=== PATIENT | male | born 1990 | race African-American/Black ===

== ENCOUNTER → 2017-11-08 | Outpatient (CLI) | payer MEDICAID | LOC: M OUTALCOH 13:53 | DX: Z03.89 Encounter for observation for other suspected diseases and conditions ruled out (principal) ==

== ENCOUNTER 2017-11-27 08:53 | Outpatient (RCR) | payer MEDICAID | END 2017-12-03 | LOC: M OUTALCOH 08:53 | DX: F12.10 Cannabis abuse, uncomplicated (principal) ==

== ENCOUNTER 2017-12-06 10:28 | Outpatient (RCR) | payer MEDICAID | END 2018-01-03 | LOC: M OUTALCOH 12-18 08:30 | DX: F12.10 Cannabis abuse, uncomplicated (principal) ==

== ENCOUNTER 2017-12-11 01:21 | Emergency (ER) | payer MEDICAID | END 2017-12-11 02:18 | disposition home or self-care (01) | LOC: M ED 01:21 | DX: F10.120 Alcohol abuse with intoxication, uncomplicated (principal); Z60.9 Problem related to social environment, unspecified | CPT/HCPCS: 99285 ==

== ENCOUNTER 2018-01-12 15:28 | Outpatient (RCR) | payer MEDICAID | END 2018-02-02 | LOC: M OUTALCOH 01-16 16:00 | DX: F12.10 Cannabis abuse, uncomplicated (principal) ==

== ENCOUNTER 2018-03-01 08:00 | Outpatient (RCR) | payer MEDICAID | END 2018-03-05 | LOC: M OUTALCOH 08:00 | PROVIDERS: ATTEND Psychiatry & Neurology Psychiatry | DX: F12.10 Cannabis abuse, uncomplicated (principal) ==

== ENCOUNTER → 2018-08-01 | Outpatient (CLI) | payer MEDICAID | LOC: M OUTALCOH 07:59 | PROVIDERS: ATTEND Psychiatry & Neurology Psychiatry | DX: F12.10 Cannabis abuse, uncomplicated (principal) ==

== ENCOUNTER 2018-08-27 08:00 | Outpatient (RCR) | payer MEDICAID | END 2018-09-02 | LOC: M OUTALCOH 08:00 | PROVIDERS: ATTEND Psychiatry & Neurology Psychiatry | DX: F12.10 Cannabis abuse, uncomplicated (principal); F17.200 Nicotine dependence, unspecified, uncomplicated ==

== ENCOUNTER 2018-09-24 16:00 | Outpatient (RCR) | payer MEDICAID | END 2018-10-03 | LOC: M OUTALCOH 16:00 | PROVIDERS: ATTEND Psychiatry & Neurology Psychiatry | DX: F12.10 Cannabis abuse, uncomplicated (principal) ==

== ENCOUNTER → 2019-09-12 | Outpatient (CLI) | payer MEDICAID | LOC: M OUTALCOH 08:05 | PROVIDERS: ATTEND Psychiatry & Neurology Addiction Medicine | DX: F17.209 Nicotine dependence, unspecified, with unspecified nicotine-induced disorders (principal); F11.20 Opioid dependence, uncomplicated; F14.20 Cocaine dependence, uncomplicated ==

== ENCOUNTER → 2019-10-04 | Outpatient (RCR) | payer MEDICAID | LOC: M OUTALCOH 09-18 09:57 | PROVIDERS: ATTEND Psychiatry & Neurology Addiction Medicine | DX: F12.10 Cannabis abuse, uncomplicated (principal); F11.20 Opioid dependence, uncomplicated; F14.20 Cocaine dependence, uncomplicated; F17.200 Nicotine dependence, unspecified, uncomplicated ==

== ENCOUNTER 2019-10-30 10:00 | Outpatient (RCR) | payer MEDICAID | END 2019-11-04 | LOC: M OUTALCOH 10:00 | PROVIDERS: ATTEND Psychiatry & Neurology Addiction Medicine | DX: F12.10 Cannabis abuse, uncomplicated (principal); F11.20 Opioid dependence, uncomplicated; F14.20 Cocaine dependence, uncomplicated; F17.200 Nicotine dependence, unspecified, uncomplicated ==

== ENCOUNTER 2020-01-23 12:17 | Emergency (ER) | payer MEDICAID, OTHER ==
[~2020-01-23] VITALS: Ht 170.2 cm; Wt 73.5 kg
[2020-01-23] MEDS ORDERED: APAP325T4 PO (12:45)
[2020-01-23] MEDS ORDERED: DOCU100C16 PO (12:45)
[2020-01-23] MEDS ORDERED: IBUP-1022 PO (12:45)
[2020-01-23 13:51] VITALS: BP 122/80
== END 2020-01-23 13:54 | disposition home or self-care (01) ==
LOC: M ED 12:17
DX: Z48.02 Encounter for removal of sutures (principal); F17.210 Nicotine dependence, cigarettes, uncomplicated; Z79.899 Other long term (current) drug therapy

== ENCOUNTER 2020-02-16 21:00 | Emergency (ER) | payer OTHER ==
[~2020-02-16] VITALS: Ht 170.2 cm; Wt 75.0 kg
[~2020-02-16 21:00] MED LIST: APAP325T4 PO; DOCU100C16 PO; IBUP-1022 PO
[2020-02-16 22:16] LABS: BASO % 0.1 % (0.0-1.0); EOS # 0.1 10^3/uL (0.0-0.5); EOS % 0.4 % (0.0-3.0); HEMATOCRIT 42.5 % (42.0-52.0); LYMPH % 15.2 % (24.0-44.0); MEAN CORPUSCULAR HEMOGLOBIN 30.5 pg (27.0-33.0); MEAN CORPUSCULAR HGB CONC 32.9 g/dl (32.0-36.5); MEAN CORPUSCULAR VOLUME 92.6 fl (80.0-96.0); MONO # 0.9 10^3/uL (0.0-0.8); MONO % 6.3 % (0.0-5.0); NEUTROPHILS # 10.4 10^3/uL (1.5-8.5); NEUTROPHILS % 77.6 % (36.0-66.0); PLATELET COUNT, AUTOMATED 211 10^3/uL (150-450); RED BLOOD COUNT 4.59 10^6/uL (4.30-6.10); WHITE BLOOD COUNT 13.4 10^3/uL (4.0-10.0)
[2020-02-16 22:47] LABS: ALBUMIN 4.1 GM/DL (3.2-5.2); ALT/SGPT 25 U/L (12-78); BILIRUBIN,DIRECT 0.1 MG/DL (0.0-0.2); BILIRUBIN,TOTAL 0.7 MG/DL (0.2-1.0); BLOOD UREA NITROGEN 10 MG/DL (7-18); CALCIUM LEVEL 9.3 MG/DL (8.5-10.1); CARBON DIOXIDE LEVEL 28 MEQ/L (21-32); CHLORIDE LEVEL 106 MEQ/L (98-107); GLOMERULAR FILTRATION RATE > 60.0 (>60); GLUCOSE, FASTING 120 MG/DL (70-100); LIPASE 72 U/L (73-393); POTASSIUM SERUM 3.5 MEQ/L (3.5-5.1); SODIUM LEVEL 141 MEQ/L (136-145); TOTAL PROTEIN 7.3 GM/DL (6.4-8.2)
[2020-02-16] MEDS ORDERED: ISOVUE-370 76% 100ML VIAL As Ordered ONE (23:15)
--- NOTE | 2020-02-17 00:17 | REPVR ---
PROCEDURE INFORMATION: Exam: CT Abdomen And Pelvis With Contrast Exam date and time: 02/16/2020 11:55 PM Age: 29 years old Clinical indication: Abdominal pain; Additional info: Periumbilical pain TECHNIQUE: Imaging protocol: Computed tomography of the abdomen and pelvis with intravenous contrast. Radiation optimization: All CT scans at this facility use at least one of these dose optimization techniques: automated exposure control; mA and/or kV adjustment per patient size (includes targeted exams where dose is matched to clinical indication); or iterative reconstruction. Contrast material: ISO 370; Contrast volume: 100 ml; Contrast route: INTRAVENOUS (IV); COMPARISON: No relevant prior studies available. FINDINGS: Lungs: Atelectasis is present at the lung bases. Liver: Liver appears normal with no focal abnormality. Gallbladder and bile ducts: Gallbladder is contracted and not well evaluated. Pancreas: Pancreas appears normal. No focal mass or peripancreatic inflammation. Spleen: Spleen appears homogeneous without focal mass. Adrenal glands: Adrenal glands are normal in appearance. Kidneys and ureters: Kidneys appear normal, with no stone, solid mass or hydronephrosis. Stomach and bowel: Dilated mid abdominal small bowel loops measure up to 3.8 cm without identifiable mass or volvulus. Transition point is difficult to pinpoint. It appears to be in the right lower quadrant. Appendix: Normal-appearing retrocecal appendix is identified, without inflammation. Intraperitoneal space: No pneumoperitoneum. Vasculature: No aortic aneurysm. Main portal and splenic veins enhance normally. Lymph nodes: No enlarged lymph nodes. Urinary bladder: Urinary bladder appears normal. Reproductive: No overt enlargement of the prostate gland. Bones/joints: Bony structures show no acute fracture or destructive process. Degenerative joint space narrowing in the hips, with femoral head-neck cyst and osseous proliferation bilaterally, worse on the left, suggesting chronic hip impingement. Soft tissues: Prior midline abdominal wall surgical incision is present without evidence of dehiscence or fluid collection. No concerning focal abnormality of the extra-abdominal and pelvic soft tissues. IMPRESSION: Partial small bowel obstruction with bowel loops measuring up to 3.8 cm, possibly secondary to adhesions given the apparent prior surgery. No identifiable mass. 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
[2020-02-17 01:52] VITALS: BP 116/63
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
== END 2020-02-17 01:53 | disposition home or self-care (01) ==
LOC: M ED 21:00 → EDBD 21:00 → M ED 02-17 01:53
DX: K56.600 Partial intestinal obstruction, unspecified as to cause (principal); F17.200 Nicotine dependence, unspecified, uncomplicated; F12.10 Cannabis abuse, uncomplicated
CPT/HCPCS: 36415; 74177; 80048; 80076; 83690; 85025; 99284; Q9967

== ENCOUNTER 2020-07-27 10:00 | Outpatient (RCR) | payer MEDICAID | END 2020-08-03 | LOC: M OUTALCOH 10:00 | PROVIDERS: ATTEND Psychiatry & Neurology Psychiatry | DX: F11.10 Opioid abuse, uncomplicated (principal); F14.10 Cocaine abuse, uncomplicated; F12.10 Cannabis abuse, uncomplicated; F17.200 Nicotine dependence, unspecified, uncomplicated ==

== ENCOUNTER 2020-09-01 09:00 | Outpatient (RCR) | payer MEDICAID | END 2020-09-02 | LOC: M OUTALCOH 09:00 | PROVIDERS: ATTEND Psychiatry & Neurology Psychiatry | DX: F11.10 Opioid abuse, uncomplicated (principal); F14.10 Cocaine abuse, uncomplicated; F12.10 Cannabis abuse, uncomplicated; F17.200 Nicotine dependence, unspecified, uncomplicated ==

== ENCOUNTER 2020-09-15 09:00 | Outpatient (RCR) | payer MEDICAID | END 2020-10-03 | LOC: M OUTALCOH 09:00 | PROVIDERS: ATTEND Psychiatry & Neurology Psychiatry | DX: F12.20 Cannabis dependence, uncomplicated (principal); F17.200 Nicotine dependence, unspecified, uncomplicated ==

== ENCOUNTER → 2020-09-29 | Outpatient (CLI) | payer MEDICAID | LOC: M OUTALCOH 08:17 | PROVIDERS: ATTEND Psychiatry & Neurology Psychiatry | DX: F12.20 Cannabis dependence, uncomplicated (principal) ==

== ENCOUNTER → 2020-11-03 | Outpatient (RCR) | payer MEDICAID | LOC: M OUTALCOH 10-06 16:15 | PROVIDERS: ATTEND Psychiatry & Neurology Psychiatry | DX: F11.10 Opioid abuse, uncomplicated (principal); F14.10 Cocaine abuse, uncomplicated; F12.10 Cannabis abuse, uncomplicated; F17.200 Nicotine dependence, unspecified, uncomplicated ==

== ENCOUNTER 2020-11-25 15:00 | Outpatient (RCR) | payer MEDICAID | END 2020-12-03 | LOC: M OUTALCOH 15:00 | PROVIDERS: ATTEND Psychiatry & Neurology Psychiatry | DX: F11.10 Opioid abuse, uncomplicated (principal); F14.10 Cocaine abuse, uncomplicated; F12.10 Cannabis abuse, uncomplicated; F17.200 Nicotine dependence, unspecified, uncomplicated ==

== ENCOUNTER 2020-12-30 15:00 | Outpatient (RCR) | payer MEDICAID | END 2021-01-03 | LOC: M OUTALCOH 15:00 | PROVIDERS: ATTEND Psychiatry & Neurology Psychiatry | DX: F11.10 Opioid abuse, uncomplicated (principal); F14.10 Cocaine abuse, uncomplicated; F12.10 Cannabis abuse, uncomplicated; F17.200 Nicotine dependence, unspecified, uncomplicated ==

== ENCOUNTER 2021-01-16 21:30 | Emergency (ER) | payer MEDICAID ==
[~2021-01-16] VITALS: Ht 167.6 cm; Wt 81.8 kg
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
[2021-01-16 22:40] LABS: BASO % 0.3 % (0.0-1.0); EOS # 0.3 10^3/uL (0.0-0.5); EOS % 2.1 % (0.0-3.0); HEMATOCRIT 41.3 % (42.0-52.0); HEMOGLOBIN 13.8 g/dl (13.5-17.5); LYMPH # 3.5 10^3/uL (1.5-5.0); LYMPH % 23.5 % (24.0-44.0); MEAN CORPUSCULAR HEMOGLOBIN 31.2 pg (27.0-33.0); MEAN CORPUSCULAR HGB CONC 33.4 g/dl (32.0-36.5); MEAN CORPUSCULAR VOLUME 93.2 fl (80.0-96.0); MONO # 0.9 10^3/uL (0.0-0.8); MONO % 6.3 % (2.0-8.0); NEUTROPHILS % 67.3 % (36.0-66.0); PLATELET COUNT, AUTOMATED 270 10^3/uL (150-450); RED BLOOD COUNT 4.43 10^6/uL (4.30-6.10); WHITE BLOOD COUNT 14.9 10^3/uL (4.0-10.0)
[2021-01-16] MEDS ORDERED: ISOVUE-370 76% 100ML VIAL As Ordered ONE (22:54)
[2021-01-16] MEDS ORDERED: NS 1,000 ML IV ONE (23:20)
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
[2021-01-16 23:46] VITALS: BP 153/101
[2021-01-16 23:52] LABS: ALBUMIN 3.3 GM/DL (3.2-5.2); ALT/SGPT 34 U/L (12-78); BILIRUBIN,DIRECT 0.1 MG/DL (0.0-0.2); BILIRUBIN,TOTAL 0.3 MG/DL (0.2-1.0); BLOOD UREA NITROGEN 13 MG/DL (7-18); CARBON DIOXIDE LEVEL 25 MEQ/L (21-32); CHLORIDE LEVEL 107 MEQ/L (98-107); CK-MB VALUE MASS 3.1 NG/ML (<3.6); CPK CREATINE PHOSPHOKINASE 310 U/L (39-308); CREATININE FOR GFR 0.87 MG/DL (0.70-1.30); GLOMERULAR FILTRATION RATE > 60.0 (>60); GLUCOSE, FASTING 110 MG/DL (70-100); LIPASE 65 U/L (73-393); POTASSIUM SERUM 3.7 MEQ/L (3.5-5.1); SODIUM LEVEL 140 MEQ/L (136-145); TOTAL PROTEIN 6.9 GM/DL (6.4-8.2); TROPONIN I < 0.02 NG/ML (< 0.10)
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
--- NOTE | 2021-01-17 20:04 | ECGEPIP ---
[facility] - ED Test Date: 2021-01-16 Pat Name: ELAINE NIELSON Department: Room: - Gender: Male Software Quality Manager: : 1990 Requested By: RIGO CUI Order Number: [id number] Reading MD: Rigo Suarez Measurements Intervals [place] Rate: 62 P: 32 MS: 118 QRS: -5 QRSD: 96 T: 19 QT: 430 QTc: 436 Interpretive Statements Normal sinus rhythm Comparison tracing not on file Baseline artifact Electronically Signed on 01-17-2021 20:04:15 EST by Rigo Suarez
== END 2021-01-17 00:30 | disposition home or self-care (01) ==
LOC: M ED 21:30
DX: K42.9 Umbilical hernia without obstruction or gangrene (principal); F17.200 Nicotine dependence, unspecified, uncomplicated; F12.10 Cannabis abuse, uncomplicated
CPT/HCPCS: 74177; 80048; 80076; 82550; 82553; 83605; 83690; 85025; 86850; 86900; 86901; 93005; 93041; 96360; 99284; Q9967

== ENCOUNTER → 2021-02-02 | Outpatient (RCR) | payer MEDICAID | LOC: M OUTALCOH 01-22 15:09 | PROVIDERS: ATTEND Psychiatry & Neurology Psychiatry | DX: F11.10 Opioid abuse, uncomplicated (principal); F14.10 Cocaine abuse, uncomplicated; F12.10 Cannabis abuse, uncomplicated; F17.200 Nicotine dependence, unspecified, uncomplicated ==

== ENCOUNTER 2021-03-01 09:59 | Outpatient (RCR) | payer MEDICAID | END 2021-03-05 | LOC: M OUTALCOH 09:59 | PROVIDERS: ATTEND Psychiatry & Neurology Psychiatry | DX: F11.10 Opioid abuse, uncomplicated (principal); F14.10 Cocaine abuse, uncomplicated; F12.10 Cannabis abuse, uncomplicated; F17.200 Nicotine dependence, unspecified, uncomplicated ==

== ENCOUNTER 2021-03-31 09:52 | Outpatient (RCR) | payer MEDICAID | END 2021-04-05 | LOC: M OUTALCOH 09:52 | PROVIDERS: ATTEND Psychiatry & Neurology Psychiatry | DX: F11.10 Opioid abuse, uncomplicated (principal); F14.10 Cocaine abuse, uncomplicated; F12.10 Cannabis abuse, uncomplicated; F17.200 Nicotine dependence, unspecified, uncomplicated ==

== ENCOUNTER 2021-04-29 08:00 | Outpatient (RCR) | payer MEDICAID | END 2021-05-03 | LOC: M OUTALCOH 08:00 | PROVIDERS: ATTEND Psychiatry & Neurology Psychiatry | DX: F11.10 Opioid abuse, uncomplicated (principal); F14.10 Cocaine abuse, uncomplicated; F12.10 Cannabis abuse, uncomplicated; F17.200 Nicotine dependence, unspecified, uncomplicated ==

== ENCOUNTER → 2021-06-03 | Outpatient (RCR) | payer MEDICAID | LOC: M OUTALCOH 05-20 14:16 | PROVIDERS: ATTEND Psychiatry & Neurology Psychiatry | DX: F11.10 Opioid abuse, uncomplicated (principal); F14.10 Cocaine abuse, uncomplicated; F12.10 Cannabis abuse, uncomplicated; F17.200 Nicotine dependence, unspecified, uncomplicated ==

== ENCOUNTER 2021-07-02 15:00 | Outpatient (RCR) | payer MEDICAID | END 2021-07-03 | LOC: M OUTALCOH 15:00 | PROVIDERS: ATTEND Psychiatry & Neurology Psychiatry | DX: F12.20 Cannabis dependence, uncomplicated (principal); F17.200 Nicotine dependence, unspecified, uncomplicated ==

== ENCOUNTER 2021-07-26 16:00 | Outpatient (RCR) | payer MEDICAID | END 2021-08-03 | LOC: M OUTALCOH 16:00 | PROVIDERS: ATTEND Psychiatry & Neurology Psychiatry | DX: F11.10 Opioid abuse, uncomplicated (principal); F14.10 Cocaine abuse, uncomplicated; F12.10 Cannabis abuse, uncomplicated; F17.200 Nicotine dependence, unspecified, uncomplicated ==

== ENCOUNTER 2021-08-31 09:30 | Outpatient (RCR) | payer MEDICAID | END 2021-09-02 | LOC: M OUTALCOH 09:30 | PROVIDERS: ATTEND Psychiatry & Neurology Psychiatry | DX: F11.10 Opioid abuse, uncomplicated (principal); F14.10 Cocaine abuse, uncomplicated; F12.10 Cannabis abuse, uncomplicated; F17.200 Nicotine dependence, unspecified, uncomplicated ==

== ENCOUNTER 2021-09-27 10:00 | Outpatient (RCR) | payer MEDICAID | END 2021-10-03 | LOC: M OUTALCOH 10:00 | PROVIDERS: ATTEND Psychiatry & Neurology Psychiatry | DX: F11.10 Opioid abuse, uncomplicated (principal); F14.10 Cocaine abuse, uncomplicated; F12.10 Cannabis abuse, uncomplicated; F17.200 Nicotine dependence, unspecified, uncomplicated ==

== ENCOUNTER 2021-10-20 10:00 | Outpatient (RCR) | payer MEDICAID | END 2021-11-03 | LOC: M OUTALCOH 10:00 | PROVIDERS: ATTEND Psychiatry & Neurology Psychiatry | DX: F11.10 Opioid abuse, uncomplicated (principal); F14.10 Cocaine abuse, uncomplicated; F12.20 Cannabis dependence, uncomplicated; F17.200 Nicotine dependence, unspecified, uncomplicated ==

== ENCOUNTER → 2021-11-29 | Outpatient (CLI) | payer MEDICAID | LOC: M OUTALCOH 08:15 | PROVIDERS: ATTEND Psychiatry & Neurology Psychiatry | DX: F19.90 Other psychoactive substance use, unspecified, uncomplicated (principal) ==

== ENCOUNTER 2021-12-27 14:00 | Outpatient (RCR) | payer MEDICAID | END 2022-01-03 | LOC: M OUTALCOH 14:00 | PROVIDERS: ATTEND Psychiatry & Neurology Psychiatry | DX: F12.20 Cannabis dependence, uncomplicated (principal); F16.20 Hallucinogen dependence, uncomplicated; F17.200 Nicotine dependence, unspecified, uncomplicated; F11.10 Opioid abuse, uncomplicated; F14.10 Cocaine abuse, uncomplicated ==

== ENCOUNTER → 2022-02-14 | Outpatient (CLI) | payer MEDICAID | LOC: M OUTALCOH 09:03 | PROVIDERS: ATTEND Psychiatry & Neurology Psychiatry | DX: F10.10 Alcohol abuse, uncomplicated (principal) ==

== ENCOUNTER → 2022-06-27 | Outpatient (CLI) | payer MEDICAID | LOC: M OUTALCOH 09:22 | PROVIDERS: ATTEND Psychiatry & Neurology Psychiatry | DX: Z13.39 Encounter for screening examination for other mental health and behavioral disorders (principal) ==

== ENCOUNTER → 2022-08-03 | Outpatient (RCR) | payer MEDICAID | LOC: M OUTALCOH 07-07 07:48 | PROVIDERS: ATTEND Psychiatry & Neurology Psychiatry | DX: F16.20 Hallucinogen dependence, uncomplicated (principal); F12.10 Cannabis abuse, uncomplicated ==

== ENCOUNTER 2022-08-24 08:40 | Outpatient (RCR) | payer MEDICAID | END 2022-09-02 | LOC: M OUTALCOH 08:40 | PROVIDERS: ATTEND Psychiatry & Neurology Psychiatry | DX: F16.20 Hallucinogen dependence, uncomplicated (principal); F12.10 Cannabis abuse, uncomplicated ==

== ENCOUNTER 2022-09-30 08:40 | Outpatient (RCR) | payer MEDICAID | END 2022-10-03 | LOC: M OUTALCOH 08:40 | PROVIDERS: ATTEND Psychiatry & Neurology Psychiatry | DX: F16.20 Hallucinogen dependence, uncomplicated (principal); F12.10 Cannabis abuse, uncomplicated ==

== ENCOUNTER 2022-11-02 16:00 | Outpatient (RCR) | payer MEDICAID | END 2022-11-03 | LOC: M OUTALCOH 16:00 | PROVIDERS: ATTEND Psychiatry & Neurology Psychiatry | DX: F16.20 Hallucinogen dependence, uncomplicated (principal); F12.10 Cannabis abuse, uncomplicated ==

== ENCOUNTER 2023-08-20 05:58 | Emergency (ER) | payer MEDICAID, OTHER ==
[~2023-08-20] VITALS: Ht 172.7 cm; Wt 84.7 kg
[2023-08-20] MEDS ORDERED: IBUP80TA PO (06:38)
[2023-08-20] MEDS ORDERED: AMOX875T2 PO (06:38)
[2023-08-20 06:42] VITALS: BP 127/78; TEMP 97.8; O2SAT 98
[2023-08-20] MEDS: ACETAMINOPHEN 500 MG TAB PO ONE (06:46)
[2023-08-20] MEDS: AUGMENTIN 875 MG TAB PO ONE (06:47)
== END 2023-08-20 06:48 | disposition home or self-care (01) ==
LOC: M ED 05:58
DX: K04.7 Periapical abscess without sinus (principal); K03.81 Cracked tooth; I10 Essential (primary) hypertension; E78.5 Hyperlipidemia, unspecified; F17.200 Nicotine dependence, unspecified, uncomplicated; F10.10 Alcohol abuse, uncomplicated; Z79.1 Long term (current) use of non-steroidal anti-inflammatories (NSAID); Z79.2 Long term (current) use of antibiotics

== ENCOUNTER 2023-08-23 06:31 | Emergency (ER) | payer OTHER ==
[~2023-08-23] VITALS: Ht 170.2 cm; Wt 82.4 kg
[~2023-08-23 06:31] MED LIST changes: +AMOX875T2 PO; +IBUP80TA PO
[2023-08-23 08:05] LABS: BASO % 0.4 % (0.0-1.0); EOS % 0.5 % (0.0-3.0); HEMATOCRIT 42.1 % (42.0-52.0); HEMOGLOBIN 14.6 g/dl (13.5-17.5); LYMPH # 2.7 10^3/uL (1.5-5.0); LYMPH % 32.6 % (24.0-44.0); MEAN CORPUSCULAR HEMOGLOBIN 31.7 pg (27.0-33.0); MEAN CORPUSCULAR HGB CONC 34.7 g/dl (32.0-36.5); MEAN CORPUSCULAR VOLUME 91.3 fl (80.0-96.0); MONO # 0.7 10^3/uL (0.0-0.8); MONO % 8.7 % (2.0-8.0); NEUTROPHILS # 4.8 10^3/uL (1.5-8.5); NEUTROPHILS % 57.6 % (36.0-66.0); PLATELET COUNT, AUTOMATED 261 10^3/uL (150-450); RED BLOOD COUNT 4.61 10^6/uL (4.30-6.10); WHITE BLOOD COUNT 8.3 10^3/uL (4.0-10.0)
[2023-08-23 08:15] VITALS: BP 125/76
[2023-08-23 08:16] VITALS: O2SAT 96
[2023-08-23 08:27] VITALS: TEMP 97.4
== END 2023-08-23 08:29 | disposition home or self-care (01) ==
LOC: M ED 06:31
DX: R10.9 Unspecified abdominal pain (principal); K59.00 Constipation, unspecified; F17.200 Nicotine dependence, unspecified, uncomplicated; F12.10 Cannabis abuse, uncomplicated; Z79.2 Long term (current) use of antibiotics; Z79.1 Long term (current) use of non-steroidal anti-inflammatories (NSAID)